=== PATIENT | male | born 1970 | race Two or more races ===

== ENCOUNTER → 2024-11-02 | Outpatient (CLI) | payer MEDICAID, SELFPAY ==
--- NOTE | 2024-11-02 08:00 | XR_ITS ---
Exam: MRI knee without contrast, without intravenous contrast MRI knee with intravenous contrast INDICATIONS: Right-sided knee pain and weakness beginning 3 months ago, history 18 x 42 mm radiolucent bone lesion posterior lateral aspect distal shaft of the femur on plain films this month Date and time of exam: 18 Technique: Multiple axial, coronal, and sagittal sections on the knee have been obtained. T2-Weighted sagittal, fat-suppressed images, TR 3,500, TE 62, T2 weighted coronal fat-saturated images, TR 3,500, TE 62 Proton density sagittal sections, TR 1800, TE 31. T-1 weighted coronal images, TR 524, TE 13.0 Findings: Medial meniscus anterior horn absent. Medial meniscus, body absent, extruded from the joint place. Posterior horn medial meniscus complex tears including large horizontal linear tear communicating inner margin. Lateral meniscus anterior horn is intact Lateral meniscus, body is intact Posterior horn lateral meniscus is intact Anterior cruciate ligament high-grade sprain Posterior cruciate ligament appears intact. Knee effusion is small. Quadriceps and patellar tendons appear intact. There is no evidence of tendinosis. Inflammatory change or fracture of Hoffa's fat pad is not seen. Medial patellar facet demonstrates severe thinning. Lateral patellar facet cartilage demonstrates severe thinning. Trochlear cartilage demonstrates severe thinning. Marrow signal images demonstrate circumscribed osteolytic lesion posterior distal femoral shaft, 31 x 9 x 17 mm which does not demonstrate enhancement on the postcontrast images. Medial collateral ligament appears intact. No meniscocapsular separation is seen. Illiotibial band and fibular collateral ligament are intact. Biceps femoris tendons appear intact. Medial femoral condylar articular cartilage demonstrates moderate thinning. Lateral femoral condylar articular cartilage demonstratesmoderate thinning. Tibial plateau cartilage demonstrates moderate thinning. 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
== END | disposition home or self-care (01) ==
LOC: SMRI 07:53
PROVIDERS: PCP Obstetrics & Gynecology; Referring Provider Obstetrics & Gynecology; Visit Provider Obstetrics & Gynecology
DX: M89.551 Osteolysis, right thigh (principal); S83.241A Other tear of medial meniscus, current injury, right knee, initial encounter; S83.511A Sprain of anterior cruciate ligament of right knee, initial encounter; X58.XXXA Exposure to other specified factors, initial encounter
CPT/HCPCS: 73723